=== PATIENT | male | born 1955 | race Caucasian/White ===

== ENCOUNTER → 2018-09-21 | Outpatient (CLI) | payer BC ==
[~2018-09-21] MED LIST: ASPIR 8181 MG PO; EXCEDRIN EXTRA1 EAC1 PO; MULTI-VITAMIN1 EACH PO; MULTIVITAMINS1 EAC7
--- NOTE | 2018-09-21 14:08 | Diagnostic Imaging Report ---
EXAM: CT Chest without contrast INDICATION: Lung cancer screening COMPARISON: None TECHNIQUE: Chest was scanned utilizing a multidetector helical scanner from the lung apex through the level of the adrenal glands without administration of IV contrast. Coronal and sagittal reformations were obtained. Low dose lung cancer screening protocol was performed. IV CONTRAST: None RADIATION DOSE: Total DLP: 263.9 mGy*cm Estimated effective dose: (DLP x 0.014 x size factor) mSv COMPLICATIONS: None FINDINGS: LINES/ TUBES: None. LUNGS AND AIRWAYS: Biapical pleural-parenchymal opacity. There are 2 adjacent left lower lobe thyroid nodules measuring 4 mm on series 3, image 64 and 6 mm on image 65. There is a 6 mm subpleural solid nodule in the right lower lobe on image 63. There is a 2 mm calcified granuloma in the right upper lobe on image 32 and a 2-mm solid nodule in the right upper lobe on image 27. The central airways are patent. No evidence of consolidation. PLEURA: The pleural spaces are clear. HEART AND MEDIASTINUM: The thyroid gland is normal. No mediastinal, hilar or axillary lymphadenopathy. There are moderate atherosclerotic calcifications. There is no pericardial effusion. Atherosclerotic calcifications of the thoracic aorta and branch vessels. UPPER ABDOMEN: Limited non-contrast views of the upper abdomen show no abnormality within the visualized liver, spleen, pancreas, or kidneys. The adrenal glands are normal. BONES: No acute bony findings. SOFT TISSUES: Small right fat containing Bochdalek hernia. IMPRESSION: Bilateral solid pulmonary nodules measuring up to 6 mm are probably benign (Lung-RADS category 3). A six month followup low dose chest CT is recommended. Coronary atherosclerosis. Signed by: Dr. Kiran Davis MD on 09/21/2018 2:05 PM
== END ==
LOC: CT 12:46
PROVIDERS: ATTEND Internal Medicine
DX: Z12.2 Encounter for screening for malignant neoplasm of respiratory organs (principal); J44.9 Chronic obstructive pulmonary disease, unspecified; Z87.891 Personal history of nicotine dependence
CPT/HCPCS: 71250

== ENCOUNTER → 2018-11-29 | Day surgery (SDC) | payer BC ==
[2018-11-24 14:27] LABS: BASOPHILS # (AUTO) 0.1 (0.0-0.1); BASOPHILS % 0.7 % (0.0-1.0); EOSINOPHILS # (AUTO) 0.3 (0.0-0.4); EOSINOPHILS % 2.9 % (0.0-6.0); HEMATOCRIT 45.8 % (38.2-49.6); HEMOGLOBIN 15.5 g/dL (14.0-18.0); LYMPHOCYTES # (AUTO) 2.9 (1.0-3.2); LYMPHOCYTES % 28.3 % (18.0-39.1); MEAN CORPUSCULAR HEMOGLOBIN 30.6 pg (28-32); MEAN CORPUSCULAR HGB CONC 33.8 g/dL (31-35); MEAN CORPUSCULAR VOLUME 90.3 fL (81-99); MONOCYTES # (AUTO) 0.9 (0.2-0.8); MONOCYTES % 8.5 % (4.4-11.3); NEUTROPHILS # (AUTO) 6.1 (2.1-6.9); NEUTROPHILS % 59.1 % (38.7-80.0); PLATELET COUNT 212 x10e3/uL (140-360); RED BLOOD COUNT 5.07 x10e6/uL (4.3-5.7); RED CELL DISTRIBUTION WIDTH 12.9 % (11.7-14.4)
[2018-11-24 14:49] LABS: ALANINE AMINOTRANSFERASE 30 IU/L (0-55); ALBUMIN 3.8 g/dL (3.5-5.0); ALKALINE PHOSPHATASE 67 IU/L (40-150); ANION GAP 14.1 mmol/L (8-16); BLOOD UREA NITROGEN 18 mg/dL (7-26); BUN/CREATININE RATIO 16 (6-25); CALCIUM 9.8 mg/dL (8.4-10.2); CARBON DIOXIDE 29 mmol/L (22-29); CHLORIDE 99 mmol/L (98-107); CHOL/HDL RATIO 4.7 (3.9-4.7); CHOLESTEROL 212 MD/DL (0-199); CREATININE, SERUM 1.13 mg/dL (0.72-1.25); EST GLOMERULAR FILTRATION RATE > 60 ML/MIN (60-); GLUCOSE 88 mg/dL (74-118); HDL CHOLESTEROL 45 MG/DL (40-60); LDL CHOLESTEROL 95 MG/DL (60-130); POTASSIUM 4.1 mmol/L (3.5-5.1); SODIUM 138 mmol/L (136-145); TRIGLYCERIDES 362 MG/DL (0-149)
[~2018-11-29] VITALS: Ht 177.8 cm; Wt 85.3 kg
[2018-11-29] VITALS (15 sets, daily range): BP systolic 107–132; BP diastolic 60–90
[~2018-11-29] MED LIST changes: +ASPIRIN 325 MG TAB ONE; +DIPHENHYDRAMINE HCL INJ 50 MG/ML VIAL ONE; +EPTIFIBATIDE 10 ML ONE; +FENTANYL CITRATE/PF 100MCG/2 ML INJ ONE; +HEPARIN SOD (PORCINE) 1000 UNIT/ML 30ML ONE; +HEPARIN SOD/SOD CHLORIDE 2,000 ML ONE; +IOPAMIDOL 370 MG/ML 200 ML INFUS..BTL INJ ONE; +MIDAZOLAM HCL 2 MG/2 ML VIAL ONE; +SODIUM CHLORIDE 0.9% 1000ML 1,000 ML ONE; +TICAGRELOR 90 MG TABLET ONE; +VERAPAMIL HCL 2.5 MG/ML 2 ML VIAL ONE
--- OUTSIDE RECORDS SUMMARY | 2018-11-29 12:21 | XMS REPORT ---
Author [facility] Address Unknown Phone Unavailable Care Team Providers Care Analyst Business Analysis Name Role Phone CRYSTAL HULL Unavailable Unavailable Problems This patient has no known problems. Allergies, Adverse Reactions, Alerts This patient has no known allergies or adverse reactions. Medications This patient has no known medications. Results Test Description Test Time Test Comments Text Results Atomic Results Result Comments CT CHEST WO 2018-09-21 13:43:00 [place] [address] Patient Name: MISTY BOOTH MR #: [id number] : 1955 Age/Sex: 63/M Req #: [id number] [facility] Physician: Ordered by: CRYSTAL HULL MD Report #: [id number] Location: CT Room/Bed: Procedure: [id number] CT/CT CHEST WO Exam Date: 09/21/18 Exam Time: 1305 REPORT STATUS: Signed EXAM: CT Chest without contrast INDICATION: Lung cancer screening COMPARISON: None TECHNIQUE: Chest was scanned utilizing a multidetector helical scanner from the lung apex through the level of the adrenal glands without administration of IV contrast. Coronal and sagittal reformations were obtained. Low dose lung cancer screening protocol was performed. IV CONTRAST: None RADIATION DOSE: Total DLP: 263.9 mGy*cm Estimated effective dose: (DLP x 0.014 x size factor) mSv COMPLICATIONS: None FINDINGS: LINES/ TUBES: None. LUNGS AND AIRWAYS: Biapical pleural-parenchymal opacity. There are 2 adjacent left lower lobe thyroid nodules measuring 4 mm on series 3, image 64 and 6 mm on image 65. There is a 6 mm subpleural solid nodule in the right lower lobe on image 63. There is a 2 mm calcified granuloma in the right upper lobe on image 32 and a 2-mm solid nodule in the right upper lobe on image 27. The central airways are patent. No evidence of consolidation. PLEURA: The pleural spaces are clear. HEART AND MEDIASTINUM: The thyroid gland is normal. No mediastinal, hilar or axillary lymphadenopathy. There are moderate atherosclerotic calcifications. There is no pericardial effusion. Atherosclerotic calcifications of the thoracic aorta and branch vessels. UPPER ABDOMEN: Limited non-contrast views of the upper abdomen show no abnormality within the visualized liver, spleen, pancreas, or kidneys. The adrenal glands are normal. BONES: No acute bony findings. SOFT TISSUES: Small right fat containing Bochdalek hernia. IMPRESSION: Bilat eral solid pulmonary nodules measuring up to 6 mm are probably benign (Lung- RADS category 3). A six month followup low dose chest CT is recommended. Coronary atherosclerosis. Signed by: Dr. Desmond Bass MD on 09/21/2018 2:05 PM Dictated By: DESMOND BASS MD [id number] Transcribed By: SALOME on 09/21/18 1245 COPY TO: CRYSTAL HULL MD
--- NOTE | 2018-11-29 18:45 | NUR ---
184 received report from Roge BROWN identifer x2 [facility] with stent to LAD Dr Levine. left iv infusing well w/o s/s infiltration 600cc NS infused. Back to baseline at bedside. Tolerated po intake well denies necessity to defecate or urinate. Rt TR titration has positive 6cc in band understand from report had bled and reinstill +4cc by Roge BROWN Only old blood present. To reinitiate TR band titration at 1900. (-2cc )w/o difficulty,191 (-2cc) Torri radiology technologist examined waited 2000 held pressure 15min post balloon cuff removal and stated ok to discharge. Site w/o slight tenderness no hematoma or active bleed. Reinforce teaching of home TR band care per Roge BROWN and place TR band arm splint to remain on till morning shower. Instructed to keep dressing on 48hrs if possible and f/o as requested in 2wks Dr Levine office . Left iv removed and no s/s infiltration coban dressing place.Rt tr band site with 2x2 and tegederm with coban light pressure dressing. Assisted to bathroom and dressed and escorted to car per w/c with as tour bus driver. No distress , no active bleeding and has copies of dc papers.Denies Cp or SOB
--- NOTE | 2018-11-30 15:59 | Operative Report ---
DATE OF PROCEDURE: November 29, 2018 INDICATIONS: Coronary artery disease, abnormal stress test with anterior ischemia. PROCEDURES PERFORMED 1. Left heart catheterization, selective coronary angiography. 2. Percutaneous transluminal coronary angioplasty and drug-eluting stent placed in the mid left anterior descending artery. 3. Deployment of right wrist transradial band. COMPLICATIONS: None. RECOMMENDATIONS: Dual-antiplatelet therapy for 6 months. Access obtained in the right radial artery. A 6-Mongolian sheath was placed. Diagnostic coronary angiogram revealed widely patent left main. Left anterior descending artery proximal had mild 20% stenosis. Mid focal 70% stenosis at the original of diagonal artery. Circumflex diffuse 20% to 30% stenosis. Mid right coronary artery 50% stenosis. LV end-diastolic pressure of 10. No gradient across the aortic valve on pullback. A decision was made to intervene on the left anterior descending artery. The patient received intravenous heparin, Integrilin and oral Brilinta and aspirin for anticoagulation. The left main was cannulated using a XB 3.5, 6-Mongolian guiding catheter. A short Intuition wire with advanced across the lesion for support. Primary stent 2.75 x 20 mm [employer] Synergy at 20 atmospheres. Excellent end result, less than 10% residual stenosis. SAMANTHA-3 flow. No complications. Wire guide sheath removed. TR band applied. Patient discharged home same day. Job#: [id number] AMOS
== END | disposition home or self-care (01) ==
LOC: CATH LAB 12:17
PROVIDERS: ATTEND Internal Medicine Interventional Cardiology
DX: I25.10 Atherosclerotic heart disease of native coronary artery without angina pectoris (principal); R94.39 Abnormal result of other cardiovascular function study; I10 Essential (primary) hypertension; J44.9 Chronic obstructive pulmonary disease, unspecified; F17.210 Nicotine dependence, cigarettes, uncomplicated; Z01.812 Encounter for preprocedural laboratory examination
CPT/HCPCS: 36415; 80053; 80061; 85025; 92928; 93458; C1874; C1887 ×2; J1200; J1327; J1644; J2250; J7030; Q9967; C1769

== ENCOUNTER → 2023-02-16 | Day surgery (SDC) | payer MEDICARE ==
[2023-02-12 08:32] LABS: BASOPHILS % 0.6 % (0.0-1.0); EOSINOPHILS # (AUTO) 0.2 (0.0-0.4); EOSINOPHILS % 2.9 % (0.0-6.0); HEMATOCRIT 42.8 % (38.2-49.6); HEMOGLOBIN 14.1 g/dL (14.0-18.0); LYMPHOCYTES # (AUTO) 2.3 (1.0-3.2); MEAN CORPUSCULAR HEMOGLOBIN 30.9 pg (28-32); MEAN CORPUSCULAR HGB CONC 32.9 g/dL (31-35); MEAN CORPUSCULAR VOLUME 93.7 fL (81-99); MONOCYTES # (AUTO) 0.6 (0.2-0.8); MONOCYTES % 8.6 % (4.4-11.3); NEUTROPHILS # (AUTO) 3.8 (2.1-6.9); NEUTROPHILS % 54.6 % (38.7-80.0); PLATELET COUNT 143 x10e3/uL (140-360); RED BLOOD COUNT 4.57 x10e6/uL (4.3-5.7); RED CELL DISTRIBUTION WIDTH 13.4 % (11.7-14.4)
[~2023-02-16] MED LIST changes: -ASPIRIN 325 MG TAB ONE; -DIPHENHYDRAMINE HCL INJ 50 MG/ML VIAL ONE; -EPTIFIBATIDE 10 ML ONE; -HEPARIN SOD (PORCINE) 1000 UNIT/ML 30ML ONE; -HEPARIN SOD/SOD CHLORIDE 2,000 ML ONE; +HYOSCYAMINE SULFATE 0.5 MG/ML INJ ONE; -IOPAMIDOL 370 MG/ML 200 ML INFUS..BTL INJ ONE; +LACTATED RINGER'S 1,000 ML ONE; +LIDOCAINE HCL 2% LOCAL INJ 5 ML SDV VIAL INJ ONE; +LIPITOR10 MG PO; +METOPROLOL SUCC25 MG PO; -MIDAZOLAM HCL 2 MG/2 ML VIAL ONE; +PLAVIX75 MG PO; +PROPOFOL IV EMULSION 50 ML IV ONE; -SODIUM CHLORIDE 0.9% 1000ML 1,000 ML ONE; -TICAGRELOR 90 MG TABLET ONE; -VERAPAMIL HCL 2.5 MG/ML 2 ML VIAL ONE
[2023-02-16 09:39] VITALS: BP 126/83
== END | disposition home or self-care (01) ==
LOC: OR 06:49
PROVIDERS: ATTEND Internal Medicine Gastroenterology
DX: Z09 Encounter for follow-up examination after completed treatment for conditions other than malignant neoplasm (principal); K63.5 Polyp of colon; K55.20 Angiodysplasia of colon without hemorrhage; Q27.39 Arteriovenous malformation, other site; K57.30 Diverticulosis of large intestine without perforation or abscess without bleeding; K64.8 Other hemorrhoids; K21.9 Gastro-esophageal reflux disease without esophagitis; I10 Essential (primary) hypertension; J44.9 Chronic obstructive pulmonary disease, unspecified; I25.10 Atherosclerotic heart disease of native coronary artery without angina pectoris; F17.200 Nicotine dependence, unspecified, uncomplicated; Z01.810 Encounter for preprocedural cardiovascular examination; Z01.812 Encounter for preprocedural laboratory examination; Z79.02 Long term (current) use of antithrombotics/antiplatelets; Z79.899 Other long term (current) drug therapy
CPT/HCPCS: 36415; 45380; 45385; 85025; 93005; J1980; J2001; J2704; J3010; J7121; 45378